=== PATIENT | male | born 1990 | race Caucasian/White ===

== ENCOUNTER 2019-02-15 10:08 | Emergency (ER) | payer OTHER ==
--- NOTE | 2019-02-15 10:24 | EDM.PDOC ---
ED HPI GENERAL MEDICAL PROBLEM - General Chief Complaint: Back Pain or Injury Stated Complaint: BACK PAIN Time Seen by Provider: 02/15/19 10:10 Source of Information: Reports: Patient History Limitations: Reports: No Limitations - History of Present Illness INITIAL COMMENTS - FREE TEXT/NARRATIVE: HISTORY AND PHYSICAL: History of present illness: Patient is a 28-year-old male who presents to the ED today with concern of low back pain times a few hours. Patient was at work when he had bent over to lift something and now has had 8 out of 10 back pain. Patient describes it as a "spasm". He has not taken anything for his pain or discomfort. He has had no prior injury to his back. He denies loss of bowel or bladder function or saddle anesthesia. Patient denies fever, chills, chest pain, shortness of breath, or cough. Denies headache, neck stiff ness, change in vision, syncope, or near syncope. Denies nausea, vomiting, abdominal pain, diarrhea, constipation, or dysuria. Has not noted any blood in urine or stool. Patient has been eating and drinking appropriately. Review of systems: As per history of present illness and below otherwise all systems reviewed and negative. Past medical history: As per history of present illness and as reviewed below otherwise noncontributory. Surgical history: As per history of present illness and as reviewed below otherwise noncontributory. Social history: See social history for further information Family history: As per history of present illness and as reviewed below otherwise noncontributory. Physical exam: General: Patient is alert, oriented, and in no acute distress. Patient sitting comfortably on exam table. HEENT: Atraumatic, normocephalic, pupils equal and reactive bilaterally, negative for conjunctival pallor or scleral icterus, mucous membranes moist, TMs normal bilaterally, throat clear, neck supple, nontender, trachea midline. No drooling or trismus noted. No meningeal signs. No hot potato voice noted. Lungs: Clear to auscultation, breath sounds equal bilaterally, chest nontender. Heart: S1S2, regular rate and rhythm without overt murmur Abdomen: Soft, nondistended, nontender. Negative for masses or hepatosplenomegaly. Negative for costovertebral tenderness. Pelvis: Stable nontender. Genitourinary: Deferred. Rectal: Deferred. Skin: Intact, warm, dry. No lesions or rashes noted. Extremities/musculoskeletal: Negative for cords or calf pain. Neurovascular unremarkable. Negative pain to palpation of the complete spine. Mild pain to palpation of the surrounding paraspinous muscles of the lumbar spine. No step- offs, obvious deformities, or crepitus on palpation. Patient has full range of motion of complete spine. Neuro: Awake, alert, oriented. Cranial nerves II through XII unremarkable. Cerebellum unremarkable. Motor and sensory unremarkable throughout. Exam nonfocal. Notes: Discussed the importance for follow-up with the primary care provider. Voices understanding and is agreeable to plan of care. Denies any further questions or concerns at this time. Diagnostics: Lumbar x-ray Therapeutics: Toradol Prescription: Diclofenac, Flexeril Impression: Low back injury Plan: 1. Rest, ice, the affected area. You can apply ice and/or heat 15 minutes on, 15 minutes off. 2. Tylenol and/or Ibuprofen as directed for pain management or discomfort. Take medications as prescribed. 3. Follow up with your primary care provider as discussed. Return to the ED as needed and as discussed. Definitive disposition and diagnosis as appropriate pending reevaluation and review of above. lower back Pain Score (Numeric/FACES): 3 - Related Data Allergies Allergy/AdvReac Type Severity Reaction Status Date / Time No Known Allergies Allergy Verified 02/15/19 10:20 Home Meds: Home Meds Cyclobenzaprine [Flexeril] 10 mg PO BID PRN #10 tab 02/15/19 [Rx] Diclofenac Sodium [Voltaren] 75 mg PO BIDMEALS PRN #10 tab.cr 02/15/19 [Rx] Multivitamin [Daily Multiple Vitamin] 1 tab PO DAILY 02/15/19 [History] Omeprazole 20 mg PO DAILY 02/15/19 [History] ED ROS GENERAL - Review of Systems Review Of Systems: ROS reveals no pertinent complaints other than HPI. ED EXAM,LOWER BACK PAIN/INJURY - Physical Exam Exam: See Below (See dictation) Course - Vital Signs Last Recorded V/S: Last Vital Signs Temp 36.3 C 02/15/19 10:21 Pulse 80 02/15/19 10:21 Resp 18 02/15/19 10:21 BP 118/86 02/15/19 10:21 Pulse Ox 99 02/15/19 10:21 - Orders/Labs/Meds Meds: Medications Discontinued Medications Generic Name Dose Route Start Last Admin Trade Name Freq PRN Reason Stop Dose Admin Ketorolac Tromethamine 60 mg 02/15/19 10:28 02/15/19 10:49 Toradol IM 02/15/19 10:29 Not Given ONETIME ONE Departure - Departure Time of Disposition: 11:09 Disposition: Home, Self-Care 01 Clinical Impression: Lower back injury Qualifiers: Encounter type: initial encounter Qualified Code(s): S39.92XA - Unspecified injury of lower back, initial encounter - Discharge Information Prescriptions: Cyclobenzaprine [Flexeril] 10 mg PO BID PRN #10 tab PRN Reason: Spasms Diclofenac Sodium [Voltaren] 75 mg PO BIDMEALS PRN #10 tab.cr PRN Reason: Pain Referrals: PCP,None [Primary Care Provider] - Forms: ED Department Discharge Additional Instructions: The following information is given to patients seen in the emergency department who are being discharged to home. This information is to outline your options for follow-up care. We provide all patients seen in our emergency department with a follow-up referral. The need for follow-up, as well as the timing and circumstances, are variable depending upon the specifics of your emergency department visit. If you don't have a primary care physician on staff, we will provide you with a referral. We always advise you to contact your personal physician following an emergency department visit to inform them of the circumstance of the visit and for follow-up with them and/or the need for any referrals to a consulting specialist. The emergency department will also refer you to a specialist when appropriate. This referral assures that you have the opportunity for follow-up care with a specialist. All of these measure are taken in an effort to provide you with optimal care, which includes your follow-up. Under all circumstances we always encourage you to contact your private physician who remains a resource for coordinating your care. When calling for follow-up care, please make the office aware that this follow-up is from your recent emergency room visit. If for any reason you are refused follow-up, please contact the [facility] Emergency Department at and asked to speak to the emergency department charge nurse. [facility] [address] [place] [id number] [facility] [address] [place] [address] 1. Rest, ice, the affected area. You can apply ice and/or heat 15 minutes on, 15 minutes off. 2. Tylenol and/or Ibuprofen as directed for pain management or discomfort. Take medications as prescribed. 3. Follow up with your primary care provider as discussed. Return to the ED as needed and as discussed.
[2019-02-15] MEDS: Ketorolac 60 MG/2 ML SDV IM ONE (10:49)
--- NOTE | 2019-02-15 10:59 | CR ---
EXAMINATION: Lumbar spine HISTORY: Pain COMPARISON: None TECHNIQUE: AP and lateral views FINDINGS: The lumbar spinal alignment is normal. The vertebral body heights and disc spaces are well-maintained. SI joints are symmetric. Bone mineralization is normal. IMPRESSION: Unremarkable lumbar spine.
== END 2019-02-15 11:23 | disposition home or self-care (01) ==
LOC: MW.ED 10:08
DX: S39.92XA Unspecified injury of lower back, initial encounter (principal); Z79.899 Other long term (current) drug therapy; X50.9XXA Other and unspecified overexertion or strenuous movements or postures, initial encounter; Y99.0 Civilian activity done for income or pay
CPT/HCPCS: 72100; 72100-26; 99283; 99283-25